=== PATIENT | female | born 1940 | race Caucasian/White ===

== ENCOUNTER 2018-10-29 10:34 | Observation (INO) ==
--- NOTE | 2018-10-29 10:53 | Emergency Department Note ---
Disposition Clinical Impression: Generalized weakness Pneumonia Qualifiers: Pneumonia type: due to unspecified organism Laterality: left Lung location: upper lobe of lung Qualified Code(s): J18.1 - Lobar pneumonia, unspecified organism Urinary tract infection Qualifiers: Urinary tract infection type: site unspecified Hematuria presence: without hematuria Qualified Code(s): N39.0 - Urinary tract infection, site not specified Disposition: Admitted As Inpatient Condition: Good Time of Disposition: 13:33 Weakness HPI - General Chief complaint: ED Weakness Stated complaint: "extreme weakness,back/LUE pain" Time Seen by Provider: 10/29/18 10:47 Source: patient Mode of arrival: ambulatory Limitations: no limitations Nursing Notes Reviewed: Yes Vital Signs Reviewed: Yes - History of Present Illness HPI Narrative: 78-year-old female otherwise healthy presents emergency department generalized weakness. States over the past 3 days she has had a decrease in appetite with associated nausea no vomiting and loose watery diarrhea. The diarrhea continues to be persistent without any blood. Denies any abdominal discomfort. Denies any chest pain but has reported some shoulder pain on the left. She denies any fevers. She reports a mile cough but no shortness of breath. He does not recall doing anything new over the past week. Her has dementia which she has been taking care from for several months. She has not traveled recently. No recent antibiotic use or hospitalizations. Denies any weight loss. She describes her weakness as no energy. Pt Subjective Complaint: generalized weakness/fatigue Pain Scale: 8 - Related Data Home Medications Medication Instructions Recorded Confirmed No Known Home Drugs 10/29/18 10/29/18 Allergies Allergy/AdvReac Type Severity Reaction Status Date / Time magnesium Allergy Unknown Swelling Verified 03/31/18 10:33 of Lip/Tongue/Throat diphenhydramine Allergy Swelling Verified 03/31/18 10:33 [From Benadryl] of Lip/Tongue/Throat wheat Allergy Swelling Verified 03/31/18 10:33 of Lip/Tongue/Throat All systems ED: reviewed and negative except as stated. Review of Systems: As Per HPI Constitutional: Reports: weakness. Denies: fever, chills, weight change ENT ED: Denies: congestion Cardiovascular: Denies: chest pain Respiratory: Denies: dyspnea Gastrointestinal: Reports: abdominal pain, diarrhea. Denies: nausea, vomiting, melena, hematochezia Genitourinary: Denies: dysuria Musculoskeletal: Denies: back pain Neurological: Reports: weakness. Denies: headache, numbness, confusion Endocrine: Reports: fatigue Past Medical History - Past Medical History Attestation: Yes The following information was validated with the patient. Source: patient Medical history: Reports: renal disease, valvular heart disease - Social History Smoking Status: Never smoker Smokeless Tobacco Status: No Alcohol use: Reports: none Drug use: Reports: none Physical Exam - General Limitations: no limitations General appearance: alert, in no apparent distress - Head Head exam: atraumatic, normocephalic, normal inspection - Eye Eye exam: Present: normal appearance, EOMI. Absent: scleral icterus - ENT ENT exam: normal exam, normal oropharynx, mucous membranes moist - Neck Neck exam: Present: normal inspection, full ROM, trachea midline - Chest Chest inspection: Present: normal inspection, symmetric chest wall rise. Absent: tenderness - Respiratory Respiratory exam: Present: normal lung sounds bilaterally. Absent: respiratory distress, wheezes - Cardiovascular Cardiovascular exam: Present: regular rate, normal rhythm, normal heart sounds - Abdominal Exam Abdominal exam: Present: soft, tenderness, normal bowel sounds. Absent: distent ion, guarding, rebound, rigidity, tenderness at McBurney's Point Abdominal tenderness: Present: LLQ, diffuse. Absent: RLQ - Extremities Exam Extremities exam: Present: normal inspection, full ROM. Absent: tenderness, pedal edema - Back Exam Back exam: Present: normal inspection, full ROM. Absent: tenderness, CVA tenderness (R), CVA tenderness (L) - Neurological Exam Neurological exam: Present: alert, oriented X3 - Psychiatric Psychiatric exam: Present: normal affect, normal mood - Skin Skin exam: Present: warm, dry, intact, normal color. Absent: rash, cyanosis, diaphoresis Course Course Narrative: Patient presents with generalized weakness over the past several days with decrease in appetite with nausea and diarrhea. She had some mild discomfort on abdominal examination mostly to the left lower quadrant. She denies any fevers and is a febrile here. She is not tachycardic. She does report a slight cough. Lungs are clear auscultation bilaterally. At this time will work are up for her generalized weakness including cardiac workup and CT scan of her abdomen and pelvis. Disposition pending workup. - Reevaluation(s) Reevaluation #1: On repeat evaluation patient continues to be in good spirits. Review for labs does not show a leukocytosis. Lactate is normal. Troponin less than 0.03. Her chest x-ray is consistent with possible pneumonia the left upper lobe. Her CT scan was unremarkable. Urinalysis is consistent with infection. At this time will treat her with Zosyn for dual coverage of pneumonia and urinary tract infection. Likely community acquired pneumonia. Her other symptoms of nausea and diarrhea are likely gastritis. She does appear dehydrated on her labs. IV fluids are helping at this time. 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 Given her situation it would benefit her for hospitalization and close observation a moderate to better her health and recovery. She is agreeable to this plan. Impression is urinary tract infection and pneumonia with generalized weakness. Patient is not septic appearing Time: 13:29 - Consultations Consultation #1: Spoke with on-call hospitalist kleber Deleon to admit for pneumonia, generalized weakness, urinary tract infection. No further orders at this time Vital Signs Temperature 98.0 F 10/29/18 10:40 Pulse Rate 77 10/29/18 10:40 Respiratory Rate 16 10/29/18 10:40 Blood Pressure 137/83 10/29/18 10:40 O2 Sat by Pulse Oximetry 95 10/29/18 10:40 Temperature 98.0 F 10/29/18 10:40 Pulse Rate 73 10/29/18 14:55 Respiratory Rate 16 10/29/18 10:40 Blood Pressure 155/82 10/29/18 14:55 O2 Sat by Pulse Oximetry 100 10/29/18 14:55 Oxygen Delivery Oxygen Delivery Room Air Weakness - MDM Narrative Medical decision making narrative: Patient was discussed with my attending physician who agrees with ED management and final disposition. They independently evaluated the patient. Please refer to their attestation to this encounter for additional information. This note was generated by [employer] voice recognition software and as a result grammatical or spelling errors may occur using this program. - Medical Records Medical records reviewed: Yes I reviewed the patient's medical records. - Lab Data Lab results reviewed: Yes I reviewed the patient's lab results. Result diagrams: 10/29/18 11:06 10/29/18 11:06 Lab Results 10/29/18 10/29/18 10/29/18 Range/Units 11:06 11:06 11:06 WBC 5.9 (4.3-11.1) K/mcL RBC 5.12 H (3.82-4.97) M/mcL Hgb 15.6 H (11.5-15.4) g/dL Hct 46.9 H (35.3-44.9) % MCV 91.6 (83.0-100.0) fL MCH 30.5 (28.0-33.3) pg MCHC 33.3 (31.6-35.5) g/dL RDW 13.5 (11.5-14.5) % Plt Count 145 (140-400) K/mcL MPV 10.7 (9.4-12.4) fL Immature Gran % 0.2 (0-4) % Seg Neutrophils % 64.4 % Lymphocytes % 24.8 % Monocytes % 10.4 % Eosinophils % 0.0 % Basophils % 0.2 % Neutrophils # 3.8 (1.6-8.9) K/mcL Lymphocytes # 1.5 (0.6-4.6) K/mcL Monocytes # 0.6 (0.0-1.3) K/mcL Eosinophils # 0.0 (0.0-0.6) K/mcL Basophils # 0.0 (0.0-0.2) K/mcL Sodium 134 L (136-145) mEq/L Potassium 3.8 (3.5-5.1) mEq/L Chloride 104 (98-107) mEq/L Carbon Dioxide 20 L (23-29) mEq/L BUN 22 (8-23) mg/dL Creatinine 1.13 (0.60-1.20) mg/dL Est GFR ( Amer) 56 L (> 60) Est GFR (Non-Af Amer) 47 L (> 60) BUN/Creatinine Ratio 19 (6-26) Glucose 130 H (70-105) mg/dL Calculated Osmolality 283 (280-300) Lactic Acid 1.3 (0.5-2.2) mmol/L Calcium 9.0 (8.6-10.3) mg/dL Total Bilirubin 0.6 (0.3-1.0) mg/dL AST 30 (13-39) Units/L ALT 27 (7-52) Units/L Alkaline Phosphatase 53 (34-104) Units/L Troponin I < 0.03 (< 0.04) ng/mL Serum Total Protein 7.1 (6.4-8.9) g/dL Albumin 4.1 (3.5-5.7) g/dL Globulin 3.0 (2.4-3.5) g/dL Albumin/Globulin Ratio 1.4 (1.1-2.2) Urine Color (Yellow) Urine Clarity (Clear) Urine pH (5.0-8.0) pH Units Ur Specific [place] (1.010-1.025) Urine Protein (Neg-Trace) mg/dL Urine Glucose (UA) (Normal) mg/dL Urine Ketones (Negative) mg/dL Urine Blood (Negative) Urine Nitrite (Negative) Urine Bilirubin (Negative) Urine Urobilinogen (Normal) mg/dL Ur Leukocyte Esterase (Negative) Urine Microscopic RBC (0-3) per hpf Urine Microscopic WBC (0-3) per hpf Ur Squamous Epith Cells (None-Few) per lpf Urine Bacteria (None-Few) per hpf Hyaline Casts Ur Culture Indicated? (NO) 10/29/18 Range/Units 11:38 WBC (4.3-11.1) K/mcL RBC (3.82-4.97) M/mcL Hgb (11.5-15.4) g/dL Hct (35.3-44.9) % MCV (83.0-100.0) fL MCH (28.0-33.3) pg MCHC (31.6-35.5) g/dL RDW (11.5-14.5) % Plt Count (140-400) K/mcL MPV (9.4-12.4) fL Immature Gran % (0-4) % Seg Neutrophils % % Lymphocytes % % Monocytes % % Eosinophils % % Basophils % % Neutrophils # (1.6-8.9) K/mcL Lymphocytes # (0.6-4.6) K/mcL Monocytes # (0.0-1.3) K/mcL Eosinophils # (0.0-0.6) K/mcL Basophils # (0.0-0.2) K/mcL Sodium (136-145) mEq/L Potassium (3.5-5.1) mEq/L Chloride (98-107) mEq/L Carbon Dioxide (23-29) mEq/L BUN (8-23) mg/dL Creatinine (0.60-1.20) mg/dL Est GFR ( Amer) (> 60) Est GFR (Non-Af Amer) (> 60) BUN/Creatinine Ratio (6-26) Glucose (70-105) mg/dL Calculated Osmolality (280-300) Lactic Acid (0.5-2.2) mmol/L Calcium (8.6-10.3) mg/dL Total Bilirubin (0.3-1.0) mg/dL AST (13-39) Units/L ALT (7-52) Units/L Alkaline Phosphatase (34-104) Units/L Troponin I (< 0.04) ng/mL Serum Total Protein (6.4-8.9) g/dL Albumin (3.5-5.7) g/dL Globulin (2.4-3.5) g/dL Albumin/Globulin Ratio (1.1-2.2) Urine Color Dark Yellow (Yellow) Urine Clarity Cloudy A (Clear) Urine pH 5.5 (5.0-8.0) pH Units Ur Specific [place] 1.025 (1.010-1.025) Urine Protein 30 H (Neg-Trace) mg/dL Urine Glucose (UA) Normal (Normal) mg/dL Urine Ketones 15 H (Negative) mg/dL Urine Blood Negative (Negative) Urine Nitrite Negative (Negative) Urine Bilirubin Small H (Negative) Urine Urobilinogen Normal (Normal) mg/dL Ur Leukocyte Esterase Moderate H (Negative) Urine Microscopic RBC 0-3 (0-3) per hpf Urine Microscopic WBC TNTC H (0-3) per hpf Ur Squamous Epith Cells Many H (None-Few) per lpf Urine Bacteria Moderate H (None-Few) per hpf Hyaline Casts Test Not Performed Ur Culture Indicated? YES A (NO) - Radiology Data Radiology results reviewed: Yes I reviewed the patient's radiology results. Chest X-Ray 10/29/18 10:51 IMPRESSION: Moderate to large consolidation within the left suprahilar region and left upper lobe. This is most concerning for pneumonia in appropriate clinical setting. Follow-up chest radiograph is recommended in 6 weeks after treatment to exclude malignancy. No evidence of pleural effusion. No evidence of pneumothorax. D/ / 10/29/2018 11:20:17 Alexy Duffy MD / sahra Interpreting Provider: Alexy Duffy MD Abdomen/Pelvis CT 10/29/18 11:20 IMPRESSION: No acute inflammatory process in the abdomen or pelvis. Sigmoid diverticulosis without diverticulitis. Partially visualized left upper lobe infiltrate is consistent with left upper lobe pneumonia. D/ / 10/29/2018 12:24:39 Gertrude Duffy MD / sahra Interpreting Provider: Gertrude Duffy MD - EKG Data EKG attestation: Yes I reviewed and interpreted this EKG. EKG results narrative: EKG performed 1055 normal sinus rhythm 80 beats per minute, normal axis, good R wave progression, no ST elevation or depression. Compared to prior EKG performed 08/30/2017 shows similar consistent findings. No acute ischemic changes. Attestation Statement - Attestation Attestation: Patient was seen with resident physician. I reviewed the history, physical, assessment and plan, and agree with the findings. I also personally evaluated this patient and had [id number] time with this patient. 78-year-old female presents to the emergency department with chief complaint of generalized weakness. Patient states his symptoms started on Wednesday. This is also concurrent with the starting of diarrhea which has persisted. Patient has had decreased by mouth intake continuation of diarrhea and generalized weakness. Patient is a history of leaky valves and the heart according to the family. Patient states she does not take any medications regularly. She says that she has been having trouble getting around and even more so she is having trouble not getting out of bed. There is no focal complaints of weakness. She is also had some nausea without vomiting. She came in today because her family members insisted that she come to the emergency department for evaluation and treatment. Otherwise she would still be home. Review of systems as above remainder negative. Physical exam vital signs are stable on arrival. ENT is unremarkable. Heart regular rhythm and rate. Lungs are clear. Abdomen is soft and nontender. Extremities are unremarkable. Neurologically intact without focal deficits. Skin no rashes. Psych normal. ED course. We will do complete workup for generalized weakness while she is here in the emergency department. I think this could very well be related to decreased intake and increased diarrhea. However want to check electrolytes chest x-ray EKG to ensure there is no other issues. Hemodynamically she remained stable while in the emergency department. Workup revealed both pneumonia as well as urinary tract infection. Patient was started on IV ant ibiotics. We discussed with the hospitalist service agreed to accept the patient for admission. I agree with resident physician assessment and plan. ED procedures.I reviewed the patient's EKG as well as the resident physician interpretation and I agree with the findings.
[2018-10-29] MEDS ORDERED: 0.9 % Sodium Chloride 500 ML IVC PRN (11:02)
[2018-10-29] MEDS ORDERED: Ondansetron 4 MG/2 ML VIAL IVP ONE (11:03)
[2018-10-29 11:26] LABS: Basophils % 0.2 %; Hematocrit 46.9 % (35.3-44.9); Hemoglobin 15.6 g/dL (11.5-15.4); Immature Granulocytes % 0.2 % (0-4); Lymphocytes # 1.5 K/mcL (0.6-4.6); Lymphocytes % 24.8 %; Mean Corpuscular HGB Conc 33.3 g/dL (31.6-35.5); Mean Corpuscular Hemoglobin 30.5 pg (28.0-33.3); Mean Corpuscular Volume 91.6 fL (83.0-100.0); Mean Platelet Volume 10.7 fL (9.4-12.4); Monocytes # 0.6 K/mcL (0.0-1.3); Monocytes % 10.4 %; Neutrophils # 3.8 K/mcL (1.6-8.9); Platelet Count 145 K/mcL (140-400); Red Blood Count 5.12 M/mcL (3.82-4.97); Red Cell Distribution Width 13.5 % (11.5-14.5); Segmented Neutrophils % 64.4 %; White Blood Count 5.9 K/mcL (4.3-11.1)
[2018-10-29 11:49] LABS: Alanine Aminotransferase 27 Units/L (7-52); Albumin 4.1 g/dL (3.5-5.7); Albumin/Globulin Ratio 1.4 (1.1-2.2); Alkaline Phosphatase 53 Units/L (34-104); Aspartate Amino Transferase 30 Units/L (13-39); BUN/Creatinine Ratio 19 (6-26); Bilirubin,Total 0.6 mg/dL (0.3-1.0); Blood Urea Nitrogen 22 mg/dL (8-23); Carbon Dioxide 20 mEq/L (23-29); Chloride 104 mEq/L (98-107); Glucose 130 mg/dL (70-105); Osmolality,Calculated 283 (280-300); Potassium 3.8 mEq/L (3.5-5.1); Sodium 134 mEq/L (136-145); Total Protein 7.1 g/dL (6.4-8.9); Troponin I < 0.03 ng/mL (< 0.04); eGFR For African Americans 56 (> 60); eGFR For Non-African Americans 47 (> 60)
[2018-10-29 12:02] LABS: Bilirubin,Urine Small (Negative); Blood,Urine Negative (Negative); Clarity,Urine Cloudy (Clear); Color,Urine Dark Yellow (Yellow); Glucose,Urine (UA) Normal (Normal); Ketones,Urine 15 mg/dL (Negative); Leukocyte Esterase,Urine Moderate (Negative); Nitrite,Urine Negative (Negative); PH,Urine 5.5 pH Units (5.0-8.0); Protein,Urine 30 mg/dL (Neg-Trace); Specific Gravity,Urine 1.025 (1.010-1.025); Urobilinogen,Urine Normal (Normal)
[2018-10-29 12:06] LABS: Bacteria,Urine Moderate per hpf (None-Few); Squamous Epithelial Cell,Urine Many per lpf (None-Few); WBC,Urine TNTC per hpf (0-3)
[2018-10-29 12:26] LABS: RBC,Urine 0-3 per hpf (0-3)
[2018-10-29] MEDS ORDERED: Piperacillin/Tazobactam 3.375 GM in 0.9 % Sodium Chloride Mini Bag 100 ML IVPB ONE (12:53)
[2018-10-29] MEDS ORDERED: 0.9 % Sodium Chloride 1,000 ML IVC ONE (13:49)
[2018-10-29] MEDS ORDERED: Naloxone 0.4 MG/ML INJ IVP PRN (16:07)
--- NOTE | 2018-10-29 16:50 | Internal Med History&Physical ---
Date of Encounter: 10/29/18 Time of Encounter: 16:10 Internal Medicine - H&P: HPI Chief complaint: generalized weakness Admitted From: Home Plans for Post Hospital Care: Home History of present illness: Ms. Aldrich is a 78 year old female with PMH of breast ca in remission, hypertension, hyperlipidemia (not on any home medications) who presents to the ER for evaluation of generalized weakness and diarrhea x 4 days. Patient is seen and examined with daughter present at bedside. Patient states she started feeling weak on Wednesday with gradual decrease in appetite with loose BM daily. She states has had a mild cough but no fever or chills until this morning. She reports of being very active and in good health and this severe weakness has been making it hard for her to even get out of bed. Pt reports of increased frequency but no dysuria for the last few days. No shortness of breath or chest pain reported. ER workup reported imaging findings concerning for PNA and UA positive with UTI. Ten point ROS is negative except as listed above Past Med Surg Social Fam HX - Past Medical History Medical history: renal disease, valvular heart disease - Social History Smoking Status: Never smoker Smokeless Tobacco Status: No Alcohol use: none Drug use: none Internal Medicine - H&P: Meds No Known Home Drugs 10/29/18 [History] Allergy/AdvReac Type Severity Reaction Status Date / Time magnesium Allergy Unknown Swelling Verified 03/31/18 10:33 of Lip/Tongue/Throat diphenhydramine Allergy Swelling Verified 03/31/18 10:33 [From Benadryl] of Lip/Tongue/Throat wheat Allergy Swelling Verified 03/31/18 10:33 of Lip/Tongue/Throat All Systems PM: A 10-system review of systems was performed and is negative for pertinent findings except as documented above in the HPI. Review of systems: Ten point ROS is negative except as listed in HPI - Constitutional Vitals: Temp Pulse Resp BP Pulse Ox 98.0 F 79 16 155/82 100 10/29/18 10:40 10/29/18 16:27 10/29/18 10:40 10/29/18 14:55 10/29/18 16:27 Exam: General: No acute distress, AAO x 3, obese HEENT: EOMI, PERRLA, NC/AT, no scleral icterus, dry oral mucosa Respiratory: Diminished breath sounds, no wheezing, no rales Cardiovascular: Regular, Rate, Rhythm, No murmurs GI: Soft, Non tender, non distended, normal bowel sounds Ext: No edema, no tenderness, positive pulses Neuro: AAO x 3, no focal deficits, CN II-XII grossly intact Rest of the clinical exam is noncontributory Internal Med - H&P Results - Labs CBC & Chem 7: 10/29/18 11:06 10/29/18 11:06 Labs: Short CBC 10/29/18 Range/Units 11:06 WBC 5.9 (4.3-11.1) K/mcL Hgb 15.6 H (11.5-15.4) g/dL Hct 46.9 H (35.3-44.9) % Plt Count 145 (140-400) K/mcL Neutrophils # 3.8 (1.6-8.9) K/mcL BMP 10/29/18 11:06 Sodium 134 L Potassium 3.8 Chloride 104 Carbon Dioxide 20 L BUN 22 Creatinine 1.13 Glucose 130 H Calcium 9.0 Cardiac Enzymes 10/29/18 Range/Units 11:06 Troponin I < 0.03 (< 0.04) ng/mL Liver Function 10/29/18 Range/Units 11:06 Total Bilirubin 0.6 (0.3-1.0) mg/dL AST 30 (13-39) Units/L ALT 27 (7-52) Units/L Alkaline Phosphatase 53 (34-104) Units/L Albumin 4.1 (3.5-5.7) g/dL Urine 10/29/18 Range/Units 11:38 Urine Color Dark Yellow (Yellow) Urine Clarity Cloudy A (Clear) Urine pH 5.5 (5.0-8.0) pH Units Ur Specific [place] 1.025 (1.010-1.025) Urine Protein 30 H (Neg-Trace) mg/dL Urine Glucose (UA) Normal (Normal) mg/dL - Impressions ITS Impressions Chest X-Ray 10/29/18 10:51 IMPRESSION: Moderate to large consolidation within the left suprahilar region and left upper lobe. This is most concerning for pneumonia in appropriate clinical setting. Follow-up chest radiograph is recommended in 6 weeks after treatment to exclude malignancy. No evidence of pleural effusion. No evidence of pneumothorax. D/ / 10/29/2018 11:20:17 Alexy Duffy MD / sahra Interpreting Provider: Alexy Duffy MD Abdomen/Pelvis CT 10/29/18 11:20 IMPRESSION: No acute inflammatory process in the abdomen or pelvis. Sigmoid diverticulosis without diverticulitis. Partially visualized left upper lobe infiltrate is consistent with left upper lobe pneumonia. D/ / 10/29/2018 12:24:39 Gertrude Duffy MD / sahra Interpreting Provider: Gertrude Duffy MD - Summary of Assessment and Plan Summary of Assessment and Plan: Ms. Aldrich is a 78 year old female with PMH of breast ca in remission, hypertension, hyperlipidemia (not on any home medications) who presents to the ER for evaluation of generalized weakness and diarrhea x 4 days. Assessment/Plan: 1. Generalized weakness likely secondary to PNA (Left Upper lobe PNA) and UTI patient received a dose of Vancomycin and Zosyn in the ER Will de-escalate abx and start Azithromycin and Ceftriaxone in am f/u blood and urine cultures f/u respiratory infection panel f/u legionella ag and strep pneumo ag f/u nasal MRSA screening continue IV fluids 2. Normal anion gap metabolic acidosis likely secondary to GI losses given hx of diarrhea no recent travel or abx use report will start on bicarb infusion and closely monitor if diarrhea continues or worsens, will obtain stool studies will closely monitor electrolytes and replace as needed 3. As per medical records patient is noted to have hx of HTN and HLD however patient is not any home medications f/u repeat Lipid panel closely monitor BP if remains hypertensive, will initiate PO antihypertensive medications DVT ppx: Heparin SQ LOS <2 midnights Care plan discussed with patient/family - Time Spent With Patient Total time spent is greater than 50% in coordination of care (as documented) at patient's floor/unit and/or counseling patient:
[2018-10-29] MEDS: *HR* Heparin 5,000 UNIT/ML VIAL SQ SCH (17:57)
[2018-10-29] MEDS: Azithromycin 250 MG TABLET PO SCH (17:57)
[2018-10-29 18:04] LABS: Adenovirus Not Detected (Not Detect); Bordetella Pertussis Not Detected (Not Detect); Chlamydophila pneumoniae Not Detected (Not Detect); Coronavirus 229E Not Detected (Not Detect); Coronavirus HKU1 Not Detected (Not Detect); Coronavirus NL63 Not Detected (Not Detect); Coronavirus OC43 Not Detected (Not Detect); Human Metapneumovirus Not Detected (Not Detect); Human Rhinovirus/Enterovirus Not Detected (Not Detect); Influenza A Subtype 2009 H1 Not Detected (Not Detect); Influenza A Untypeable Not Detected (Not Detect); Influenza B Not Detected (Not Detect); Mycoplasma pneumoniae Not Detected (Not Detect); Parainfluenza Virus 1 Not Detected (Not Detect); Parainfluenza Virus 2 Not Detected (Not Detect); Parainfluenza Virus 3 Not Detected (Not Detect); Parainfluenza Virus 4 Not Detected (Not Detect); Respiratory Syncytial Virus Not Detected (Not Detect)
[2018-10-29] MEDS: cefTRIAXone 1,000 MG in Water for inj. (sterile) 20 ML 10 ML IVP SCH (21:11)
[2018-10-29] MEDS: Sodium Bicarbonate 75 MEQ in 0.45 % Sodium Chloride 1,000 ML IVC SCH (21:12)
[2018-10-30] MEDS: *HR* Heparin 5,000 UNIT/ML VIAL SQ SCH ×2 (05:49→18:26)
[2018-10-30 07:37] LABS: Basophils % 0.2 %; Hematocrit 41.7 % (35.3-44.9); Immature Granulocytes % 0.2 % (0-4); Lymphocytes # 1.5 K/mcL (0.6-4.6); Lymphocytes % 34.2 %; Mean Corpuscular HGB Conc 32.4 g/dL (31.6-35.5); Mean Corpuscular Hemoglobin 29.9 pg (28.0-33.3); Mean Corpuscular Volume 92.5 fL (83.0-100.0); Mean Platelet Volume 11.7 fL (9.4-12.4); Monocytes # 0.3 K/mcL (0.0-1.3); Monocytes % 7.4 %; Neutrophils # 2.6 K/mcL (1.6-8.9); Platelet Count 116 K/mcL (140-400); Red Blood Count 4.51 M/mcL (3.82-4.97); Red Cell Distribution Width 13.7 % (11.5-14.5); White Blood Count 4.4 K/mcL (4.3-11.1)
[2018-10-30] MEDS: Acetaminophen 325 MG TABLET PO PRN (07:41)
[2018-10-30 07:43] LABS: Hemoglobin 13.5 g/dL (11.5-15.4)
[2018-10-30 07:52] LABS: Chol/HDL Ratio 9.3 (0-4.9)
[2018-10-30 07:54] LABS: BUN/Creatinine Ratio 16 (6-26); Blood Urea Nitrogen 16 mg/dL (8-23); Calcium 7.8 mg/dL (8.6-10.3); Carbon Dioxide 23 mEq/L (23-29); Chloride 103 mEq/L (98-107); Glucose 94 mg/dL (70-105); Magnesium 1.7 mg/dL (1.6-2.6); Osmolality,Calculated 287 (280-300); Phosphorous 2.2 mg/dL (2.7-4.5); Potassium 3.7 mEq/L (3.5-5.1); Sodium 138 mEq/L (136-145); eGFR For African Americans > 60 (> 60); eGFR For Non-African Americans 53 (> 60)
[2018-10-30] MEDS ORDERED: cefTRIAXone 1,000 MG in Water for inj. (sterile) 20 ML 10 ML IVP SCH (09:00)
[2018-10-30] MEDS: cefTRIAXone 1,000 MG in Water for inj. (sterile) 20 ML 10 ML IVP SCH (09:34)
[2018-10-30] MEDS: Azithromycin 250 MG TABLET PO SCH (09:35)
--- NOTE | 2018-10-30 12:50 | Internal Med Progress Note ---
Hospitalist Progress Note - Encounter Date of Encounter: 10/30/18 Time of Encounter: 12:50 - Subjective Interval History: Patient seen and examined earlier today with family present at bedside. She was noted to be febrile this morning with a Tmax of 103. Has been afebrile since then. States she feels better compared to previous day. Tolerating PO intake better. Denies any shortness of breath, chest pain, fever, or chills at this time. Ten point ROS is negative except as listed above - Exam Vitals: Temp Pulse Resp BP Pulse Ox 98.3 F 64 16 107/66 95 10/30/18 10:23 10/30/18 10:23 10/30/18 10:23 10/30/18 10:23 10/30/18 10:23 Exam: General: No acute distress, AAO x 3, obese HEENT: EOMI, PERRLA, NC/AT, no scleral icterus Respiratory: Diminished breath sounds, no wheezing, no rales Cardiovascular: Regular, Rate, Rhythm, No murmurs GI: Soft, Non tender, non distended, normal bowel sounds Ext: No edema, no tenderness, positive pulses Neuro: AAO x 3, no focal deficits, CN II-XII grossly intact Rest of the clinical exam is noncontributory - Summary of Assessment and Plan Summary of Assessment and Plan: Ms. Aldrich is a 78 year old female with PMH of breast ca in remission, hypertension, hyperlipidemia (not on any home medications) who presents to the ER for evaluation of generalized weakness and diarrhea x 4 days. Assessment/Plan: 1. Generalized weakness likely secondary to PNA (Left Upper lobe PNA) and UTI started Azithromycin and Ceftriaxone today f/u blood and urine cultures respiratory infection panel: negative f/u legionella ag and strep pneumo ag: negative nasal MRSA screening: negative 2. Normal anion gap metabolic acidosis likely secondary to GI losses given hx of diarrhea resolved tolerating PO intake 3. As per medical records patient is noted to have hx of HTN and HLD however patient is not any home medications BP within acceptable range continue to monitor BP DVT ppx: Heparin SQ Care plan discussed with patient/family - Time Spent with Patient Total time spent is greater than 50% in coordination of care (as documented) at patient's floor/unit and/or counseling patient: Internal Medicine: Result - Labs CBC & Chem 7: 10/30/18 05:37 10/30/18 05:37 Labs: Short CBC 10/30/18 Range/Units 05:37 WBC 4.4 (4.3-11.1) K/mcL Hgb 13.5 D (11.5-15.4) g/dL Hct 41.7 (35.3-44.9) % Plt Count 116 L (140-400) K/mcL Neutrophils # 2.6 (1.6-8.9) K/mcL BMP 10/30/18 05:37 Sodium 138 Potassium 3.7 Chloride 103 Carbon Dioxide 23 BUN 16 Creatinine 1.01 Glucose 94 Calcium 7.8 L Consult Discharge Plan - Plan Referrals: Asher Diamond DO [Primary Care Provider] -
[2018-10-30] MEDS: Sodium Bicarbonate 75 MEQ in 0.45 % Sodium Chloride 1,000 ML IVC SCH (13:06)
[2018-10-31 04:18] LABS: Hematocrit 41.9 % (35.3-44.9); Hemoglobin 13.7 g/dL (11.5-15.4); Immature Granulocytes % 0.3 % (0-4); Lymphocytes # 1.3 K/mcL (0.6-4.6); Lymphocytes % 33.9 %; Mean Corpuscular HGB Conc 32.7 g/dL (31.6-35.5); Mean Corpuscular Hemoglobin 30.3 pg (28.0-33.3); Mean Corpuscular Volume 92.7 fL (83.0-100.0); Monocytes # 0.3 K/mcL (0.0-1.3); Monocytes % 7.3 %; Neutrophils # 2.2 K/mcL (1.6-8.9); Platelet Count 104 K/mcL (140-400); Red Blood Count 4.52 M/mcL (3.82-4.97); Red Cell Distribution Width 13.3 % (11.5-14.5); Segmented Neutrophils % 58.5 %; White Blood Count 3.8 K/mcL (4.3-11.1)
[2018-10-31 04:38] LABS: BUN/Creatinine Ratio 18 (6-26); Blood Urea Nitrogen 17 mg/dL (8-23); Calcium 8.2 mg/dL (8.6-10.3); Carbon Dioxide 24 mEq/L (23-29); Chloride 104 mEq/L (98-107); Glucose 111 mg/dL (70-105); Magnesium 1.8 mg/dL (1.6-2.6); Osmolality,Calculated 290 (280-300); Phosphorous 2.3 mg/dL (2.7-4.5); Potassium 3.7 mEq/L (3.5-5.1); Sodium 139 mEq/L (136-145); eGFR For African Americans > 60 (> 60); eGFR For Non-African Americans 58 (> 60)
[2018-10-31 04:55] LABS: Platelet Estimate Slight Decrease (Normal); Reactive Lymphocytes Present (Not Present)
[2018-10-31] MEDS: *HR* Heparin 5,000 UNIT/ML VIAL SQ SCH ×2 (06:00→17:01)
[2018-10-31 07:09] LABS: Estimated Average Glucose 134 mg/dl
[2018-10-31] MEDS: cefTRIAXone 1,000 MG in Water for inj. (sterile) 20 ML 10 ML IVP SCH (07:54)
[2018-10-31] MEDS: Azithromycin 250 MG TABLET PO SCH (07:55)
--- NOTE | 2018-10-31 08:54 | Electrocardiograph Report ---
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
--- NOTE | 2018-10-31 13:11 | Internal Med Progress Note ---
Hospitalist Progress Note - Encounter Date of Encounter: 10/31/18 Time of Encounter: 13:08 - Subjective Interval History: Patient seen and examined earlier today with family present at bedside. Patient resting in chair and states she feels weak but better compared to previous day. Noted to have low grade fever this morning, now resolved. She denies any fever or chills, no shortness of breath, or chest pain reported. Ten point ROS is negative except as listed above - Exam Vitals: Temp Pulse Resp BP Pulse Ox 98.2 F 68 16 147/81 95 10/31/18 12:29 10/31/18 12:29 10/31/18 12:29 10/31/18 12:29 10/31/18 12:29 Exam: General: No acute distress, AAO x 3, obese HEENT: EOMI, PERRLA, NC/AT, no scleral icterus Respiratory: Diminished breath sounds, no wheezing, no rales Cardiovascular: Regular, Rate, Rhythm, No murmurs GI: Soft, Non tender, non distended, normal bowel sounds Ext: No edema, no tenderness, positive pulses Neuro: AAO x 3, no focal deficits, CN II-XII grossly intact Rest of the clinical exam is noncontributory - Summary of Assessment and Plan Summary of Assessment and Plan: Ms. Aldrich is a 78 year old female with PMH of breast ca in remission, hypertension, hyperlipidemia (not on any home medications) who presents to the ER for evaluation of generalized weakness and diarrhea x 4 days. Assessment/Plan: 1. Generalized weakness likely secondary to PNA (Left Upper lobe PNA) and UTI will broaden abx coverage due to persistent fever also noted to have prolonged QT interval on EKG therefore will d/c Azithromycin started Zosyn IV today blood and urine culture report no growth thus far respiratory infection panel: negative f/u legionella ag and strep pneumo ag: negative nasal MRSA screening: negative elevated procalcitonin level noted 2. Normal anion gap metabolic acidosis likely secondary to GI losses given hx of diarrhea resolved tolerating PO intake 3. As per medical records patient is noted to have hx of HTN and HLD however patient is not any home medications BP within acceptable range continue to monitor BP DVT ppx: Heparin SQ PT evaluation requested Care plan discussed with patient/family/RN/pharmacist/case management - Time Spent with Patient Total time spent is greater than 50% in coordination of care (as documented) at patient's floor/unit and/or counseling patient: Internal Medicine: Result - Labs CBC & Chem 7: 10/31/18 03:51 10/31/18 03:51 Labs: Short CBC 10/31/18 Range/Units 03:51 WBC 3.8 L (4.3-11.1) K/mcL Hgb 13.7 (11.5-15.4) g/dL Hct 41.9 (35.3-44.9) % Plt Count 104 L (140-400) K/mcL Neutrophils # 2.2 (1.6-8.9) K/mcL BMP 10/31/18 03:51 Sodium 139 Potassium 3.7 Chloride 104 Carbon Dioxide 24 BUN 17 Creatinine 0.94 Glucose 111 H Calcium 8.2 L - Impressions Impressions Abdomen/Pelvis CT 10/29/18 11:20 IMPRESSION: No acute inflammatory process in the abdomen or pelvis. Sigmoid diverticulosis without diverticulitis. Partially visualized left upper lobe infiltrate is consistent with left upper lobe pneumonia. D/ / 10/29/2018 12:24:39 Gertrude Duffy MD / sahra Interpreting Provider: Gertrude Duffy MD Consult Discharge Plan - Plan Referrals: Asher Diamond DO [Primary Care Provider] -
[2018-10-31] MEDS: Piperacillin/Tazobactam 3.375 GM in 0.9 % Sodium Chloride Mini Bag 100 ML IVPB SCH (17:00)
--- NOTE | 2018-10-31 17:19 | Electrocardiograph Report ---
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
[2018-11-01] MEDS: Piperacillin/Tazobactam 3.375 GM in 0.9 % Sodium Chloride Mini Bag 100 ML IVPB SCH ×2 (00:20→08:44)
[2018-11-01] MEDS: Acetaminophen 325 MG TABLET PO PRN (00:20)
[2018-11-01 04:36] LABS: Basophils % 0.3 %; Hematocrit 42.2 % (35.3-44.9); Hemoglobin 13.9 g/dL (11.5-15.4); Immature Granulocytes % 0.3 % (0-4); Lymphocytes # 1.6 K/mcL (0.6-4.6); Lymphocytes % 41.7 %; Mean Corpuscular HGB Conc 32.9 g/dL (31.6-35.5); Mean Corpuscular Volume 91.1 fL (83.0-100.0); Monocytes # 0.3 K/mcL (0.0-1.3); Monocytes % 7.3 %; Platelet Count 107 K/mcL (140-400); Red Blood Count 4.63 M/mcL (3.82-4.97); Red Cell Distribution Width 13.5 % (11.5-14.5); Segmented Neutrophils % 50.4 %; White Blood Count 3.9 K/mcL (4.3-11.1)
[2018-11-01 05:03] LABS: BUN/Creatinine Ratio 19 (6-26); Blood Urea Nitrogen 18 mg/dL (8-23); Calcium 8.2 mg/dL (8.6-10.3); Carbon Dioxide 25 mEq/L (23-29); Chloride 104 mEq/L (98-107); Glucose 98 mg/dL (70-105); Magnesium 1.9 mg/dL (1.6-2.6); Osmolality,Calculated 290 (280-300); Potassium 3.8 mEq/L (3.5-5.1); Sodium 139 mEq/L (136-145); eGFR For African Americans > 60 (> 60); eGFR For Non-African Americans 57 (> 60)
[2018-11-01 05:17] LABS: Platelet Estimate Slight Decrease (Normal); Reactive Lymphocytes Present (Not Present)
[2018-11-01] MEDS: *HR* Heparin 5,000 UNIT/ML VIAL SQ SCH (05:31)
--- NOTE | 2018-11-01 12:52 | Discharge Summary ---
- NOTES TO OUTPATIENT PROVIDER Notes to Outpatient Provider: Pt admitted for PNA, treated with IV abx and being discharged with Augmentin. Noted to have HbA1c of 6.3 and remains hypertensive. Low dose lisinopril added. Please closely monitor BP and blood glucose as outpatient Orders not resulted at time of discharge: Pending orders 10/29/18 13:01 Culture,Blood [BC] Stat Date of Encounter: 11/01/18 Time of Encounter: 12:49 - Discharge Diagnosis (1) Left upper lobe pneumonia Priority: Primary Status: Acute Qualifiers: Pneumonia type: due to unspecified organism Qualified Code(s): J18.1 - Lobar pneumonia, unspecified organism (2) Normal anion gap metabolic acidosis Priority: Secondary Status: Resolved (3) Hypertension Priority: Secondary Status: Chronic Qualifiers: Hypertension type: essential hypertension Qualified Code(s): I10 - Essential (primary) hypertension (4) Generalized weakness Priority: Primary Status: Resolved (5) Urinary tract infection Priority: Primary Status: Acute Qualifiers: Urinary tract infection type: site unspecified Hematuria presence: without hematuria Qualified Code(s): N39.0 - Urinary tract infection, site not specified Hospital course: Ms. Aldrich is a 78 year old female with PMH of breast ca in remission, hypertension, hyperlipidemia (not on any home medications) who presents to the ER for evaluation of generalized weakness and diarrhea x 4 days. She was admitted for LLL PNA and UTI. She was also found to have normal anion gap metabolic acidosis. Pt was started on IV abx and IV bicarb infusion. Pt responded well to therapy. Reported resolution of diarrhea and improvement in weakness. However, hospital course was complicated with a fever of 103.0F. Abx were broadened. Blood and urine culture remained negative. She improved clinically with continuation of intermittent low grade fevers. She is currently back to her baseline, ambulating well without any difficulty. She was also found to have HbA1C of 6.3 and remained hypertensive. Lisinopril was added to her home medications. Pt is medically stable for discharge to home with outpatient follow up with PCP. Pt was seen and examined earlier today, she is in agreement with the discharge care and plan, all questions were answered. Pt is requesting home health services. Discharge discussed with: patient, nurse, social work, case management - Time Spent with Patient Total time spent providing and/or coordinating discharge services: 25 minutes Time spent: Less than 30 minutes - Discharge Medications Prescriptions: New Amoxicillin/Clavulanate [Augmentin] 500 mg PO BIDWM #7 tablet Lisinopril [Zestril] 2.5 mg PO DAILY #30 tablet Home Medications: Amoxicillin/Clavulanate [Augmentin] 500 mg PO BIDWM #7 tablet 11/01/18 [Rx] Lisinopril [Zestril] 2.5 mg PO DAILY #30 tablet 11/01/18 [Rx] Allergies/Adverse Reactions: Allergy/AdvReac Type Severity Reaction Status Date / Time magnesium Allergy Unknown Swelling Verified 03/31/18 10:33 of Lip/Tongue/Throat diphenhydramine Allergy Swelling Verified 03/31/18 10:33 [From Benadryl] of Lip/Tongue/Throat wheat Allergy Swelling Verified 03/31/18 10:33 of Lip/Tongue/Throat Date of admission: 10/29/18 14:36 Primary care physician: Janes Diamond DO Consults: 10/31/18 08:20 Consult to Nurse Navigator [CONS] Routine Comment: pna 10/31/18 11:33 Consult to Physical Therapy [CONS] Routine Comment: Evaluate, develop and implement POC Reason for Consult: Decreased strength Does patient have active BEDREST order?: No Is patient medically & hemodynamically stable?: Yes Patient assessed for mobility or mobilized this visit?: Yes 11/01/18 12:27 Consult to Circuitry Negative Inspector [CONS] Stat Reason for SW Consult: Discharge planning. Discharging clinician: Laura Zimmerman Anticipated date of discharge: 11/01/18 - Constitutional Vitals: Temp Pulse Resp BP Pulse Ox 97.9 F 70 18 155/75 92 11/01/18 07:29 11/01/18 07:29 11/01/18 07:29 11/01/18 07:29 11/01/18 07:29 Exam: General: No acute distress, AAO x 3, obese HEENT: EOMI, PERRLA, NC/AT, no scleral icterus Respiratory: Equal air entry bilaterally, no wheezing, no rales Cardiovascular: Regular, Rate, Rhythm, No murmurs GI: Soft, Non tender, non distended, normal bowel sounds Ext: No edema, no tenderness, positive pulses Neuro: AAO x 3, no focal deficits, CN II-XII grossly intact Rest of the clinical exam is noncontributory - Patient Status Disposition: Home Health Service Condition: Good Functional capacity at discharge: independent ambulation - Discharge Instructions Follow Up With: Asher Diamond DO [Primary Care Provider] - Additional Instructions: 1. Please follow up with your primary care physician within three to five days after your discharge from the hospital. 2. Please continue oral antibiotics as prescribed for three more days 3. Lisinopril 2.5mg once a day is added to your home medications 4. Your HbA1C is 6.3 classifying you as a prediabetic. Dietary changes and weight loss is recommended 5. Please seek medical help immediately if you have difficulty breathing, have chest pain, or fever. - Diet and Activity Diet: diabetic diet, low fat, low cholesterol, low salt diet
--- NOTE | 2018-11-01 12:59 | Physician Discharge Referral ---
Home Health/Hosp Referral Info Transfer to: Home Health Provider in Charge Post Discharge: PCP - Diagnosis (1) Left upper lobe pneumonia Priority: Primary Status: Acute (2) Normal anion gap metabolic acidosis Priority: Secondary Status: Resolved (3) Hypertension Priority: Secondary Status: Chronic (4) Generalized weakness Priority: Primary Status: Resolved (5) Urinary tract infection Priority: Primary Status: Acute - Respiratory Orders Smoking Cessation: Smoking cessation has been advised. For more information, call the [place] Tobacco Quit Line at 8-474-QISV-NOW. - Services Needed Following services are medically necessary services: Nursing, Home Health Aide, Physical Therapy - Transfer Medications Prescriptions: Amoxicillin/Clavulanate [Augmentin] 500 mg PO BIDWM #7 tablet Lisinopril [Zestril] 2.5 mg PO DAILY #30 tablet Home Medications: Amoxicillin/Clavulanate [Augmentin] 500 mg PO BIDWM #7 tablet 11/01/18 [Rx] Lisinopril [Zestril] 2.5 mg PO DAILY #30 tablet 11/01/18 [Rx] Allergies/Adverse Reactions: Allergy/AdvReac Type Severity Reaction Status Date / Time magnesium Allergy Unknown Swelling Verified 03/31/18 10:33 of Lip/Tongue/Throat diphenhydramine Allergy Swelling Verified 03/31/18 10:33 [From Benadryl] of Lip/Tongue/Throat wheat Allergy Swelling Verified 03/31/18 10:33 of Lip/Tongue/Throat Certification: Further, I certify that my clinical findings support that this patient is homebound (i.e. absences from home require considerable and taxing effort and are for medical reasons or gnosticism services or infrequently or short duration when for other reasons) because: Homebound Reason: Patient requires assistance of a person or device to safely leave home Attestation: My signature below is to certify that this patient is under my care and that I, or nurse practitioner, or a physician's veterinary assistant working with me, has a f werner-to-face encounter with this patient.
[2018-11-01 16:33] VITALS: BP 148/75
[2018-11-01] MEDS ORDERED: Amoxicillin/Clavulanate 500 MG TABLET PO SCH (17:00)
== END 2018-11-01 18:29 | disposition home health service (06) ==
LOC: 3ANU 10:34 → EMEROOARM 10:34 → 3ANU 16:35
PROVIDERS: ADMIT Internal Medicine Nephrology; ATTEND Internal Medicine Nephrology